=== PATIENT | female | born 1980 | race Hispanic/Latino ===

== ENCOUNTER 2021-09-29 07:58 | Outpatient (CLI) | payer OTHER ==
[2021-09-29] MEDS ORDERED: Iopamidol-370 76% 500 ML 1 ML ONE (09:21)
== END 2021-09-29 07:59 | disposition home or self-care (01) ==
LOC: BICCT 07:58
PROVIDERS: ATTEND Internal Medicine Hematology & Oncology
DX: D75.838 Other thrombocytosis (principal); R19.8 Other specified symptoms and signs involving the digestive system and abdomen; R19.09 Other intra-abdominal and pelvic swelling, mass and lump; M79.9 Soft tissue disorder, unspecified
CPT/HCPCS: 74177; Q9967